=== PATIENT | female | born 2000 | race Caucasian/White ===

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

== ENCOUNTER 2020-04-30 12:35 | Emergency (ER) | payer MEDICAID ==
--- NOTE | 2020-04-30 12:58 | ER Document Report ---
ED Medical Screen (RME) - General Chief Complaint: Breathing Difficulty Stated Complaint: SHORTNESS OF BREATH/CHILLS/ Time Seen by Provider: 04/30/20 12:52 Mode of Arrival: Ambulatory Information source: Patient Notes: 19-year-old female presents to ED for chest pain shortness of breath. She does have a history of asthma anxiety depression and dislocated shoulder. She states she was supposed to go to work today where she was very short of breath and her mother's boyfriend called back and stated that he was positive for COVID. She states that she lives in the same house with her mother's boyfriend and that she has close contact and she does not smoke does not drink alcohol but does use marijuana. She is alert oriented respirations regular nonlabored at this time. She states she does have body aches all over but no fever. ' I have greeted and performed a rapid initial assessment of this patient. A comprehensive ED assessment and evaluation of the patient, analysis of test results and completion of medical decision making process will be conducted by an additional ED providers. - Related Data Allergies/Adverse Reactions: No Known Allergies Allergy (Verified 04/30/20 12:55) Past Medical History - Social History Frequency of alcohol use: None Drug Abuse: Marijuana Pulmonary Medical History: Reports: Hx Asthma Physical Exam - Vital signs Vitals: Temp Pulse Resp BP Pulse Ox 98.5 F 78 18 122/66 99 04/30/20 12:40 04/30/20 12:40 04/30/20 12:40 04/30/20 12:40 04/30/20 12:40 Course - Vital Signs Vital signs: Temp Pulse Resp BP Pulse Ox 98.5 F 78 18 122/66 99 04/30/20 12:40 04/30/20 12:40 04/30/20 12:40 04/30/20 12:40 04/30/20 12:40
[2020-04-30 14:13] LABS: A TYPE INFLUENZA AG NEGATIVE (NEGATIVE); B INFLUENZA AG NEGATIVE (NEGATIVE)
--- NOTE | 2020-04-30 14:40 | RADIOLOGY REPORT (SQ) ---
EXAM DESCRIPTION: CHEST SINGLE VIEW IMAGES COMPLETED DATE/TIME: 04/30/2020 2:13 pm REASON FOR STUDY: Chest pain covid exposure COMPARISON: None. EXAM PARAMETERS: NUMBER OF VIEWS: One view. TECHNIQUE: Single frontal radiographic view of the chest acquired. RADIATION DOSE: NA LIMITATIONS: None. FINDINGS: LUNGS AND PLEURA: No opacities, masses or pneumothorax. No pleural effusion. MEDIASTINUM AND HILAR STRUCTURES: No masses. Contour normal. HEART AND VASCULAR STRUCTURES: Heart normal in size. Normal vasculature. BONES: No acute findings. HARDWARE: None in the chest. OTHER: No other significant finding. IMPRESSION: NO ACUTE RADIOGRAPHIC FINDING IN THE CHEST. TECHNICAL DOCUMENTATION: JOB ID: [id number] 2010 [employer]- All Rights Reserved Reading location - IP/workstation name: [email or web address]
--- NOTE | 2020-04-30 16:05 | ER Document Report ---
ED General - General Chief Complaint: Breathing Difficulty Stated Complaint: SHORTNESS OF BREATH/CHILLS/ Time Seen by Provider: 04/30/20 12:52 Mode of Arrival: Ambulatory Notes: Patient is a 19-year-old white female with a history of asthma who presents the emergency department today with chief complaint of exposure to COVID-19. The patient reports that a close friend of hers and her in her cervical tested +2 days ago for COVID-19. She states her mother was around this person yesterday and she has been subsequently around her mother. She states yesterday she started noticing some difficulty breathing. She states this is hard to describe but is only able to reported as trouble breathing. She admits is associated with intermittent sharp anterior chest pains. She states she feels okay at this time but was concerned given the previous stated symptoms and her exposure to COVID-19 so she came for testing and evaluation. She denies any fevers, chills, night sweats, abdominal pain, vomiting diarrhea, nausea, rashes or recent travel. - Related Data Allergies/Adverse Reactions: No Known Allergies Allergy (Verified 04/30/20 12:55) Past Medical History - General Information source: Patient - Social History Smoking Status: Never Smoker Frequency of alcohol use: None Drug Abuse: Marijuana Family History: Reviewed & Not Pertinent Pulmonary Medical History: Reports: Hx Asthma Review of Systems - Review of Systems Constitutional: denies: Fever EENT: denies: Nose discharge Cardiovascular: Chest pain Respiratory: Short of breath Gastrointestinal: denies: Abdominal pain Genitourinary: denies: Hematuria Female Genitourinary: denies: Vaginal discharge Musculoskeletal: denies: Deformity Skin: denies: Lesions Hematologic/Lymphatic: denies: Blood clots Neurological/Psychological: denies: Headaches Physical Exam - Vital signs Vitals: Temp Pulse Resp BP Pulse Ox 98.5 F 78 18 122/66 99 04/30/20 12:40 04/30/20 12:40 04/30/20 12:40 04/30/20 12:40 04/30/20 12:40 - General General appearance: Appears well, Alert In distress: None - HEENT Head: Normocephalic, Atraumatic Eyes: Normal Conjunctiva: Normal Extraocular movements intact: Yes Pupils: PERRL Ears: Normal External canal: Normal Tympanic membrane: Normal Nasal: Normal Mouth/Lips: Normal Mucous membranes: Normal Pharynx: Normal Neck: Normal, Supple - Respiratory Respiratory status: No respiratory distress Chest status: Nontender Breath sounds: Normal Chest palpation: Normal - Cardiovascular Rhythm: Regular Heart sounds: Normal auscultation - Extremities General upper extremity: Normal inspection, Nontender, Normal color, Normal ROM, Normal temperature General lower extremity: Normal inspection, Nontender, Normal color, Normal ROM, Normal temperature, Normal weight bearing. No: Ferdinand's sign - Neurological Neuro grossly intact: Yes Cognition: Normal Orientation: AAOx4 - Psychological Associated symptoms: Normal affect, Normal mood - Skin Skin Temperature: Warm Skin Moisture: Dry Skin Color: Normal Course - Re-evaluation Re-evalutation: 04/30/20 17:18 EKG: Sinus rhythm at 72 bpm. Normal axis. Normal intervals. No STEMI. Interpreted by myself in conjunction with ED attending. 04/30/20 17:23 X-ray negative for any acute process per radiologist. Work-up largely unremarkable. Patient is pending her COVID-19 test. We discussed quarantine measures, isolation in her home until a negative result is phoned to her or at least 10 days and quarantine or until she is 24 hours symptom-free per CDC guidelines. Discussed with her the importance of outpatient follow-up. She requested a refill of her albuterol rescue inhaler. I advised that she return here or any ER immediately with any new, persistent or worsening symptoms. She verbalized understood and agreed. Patient is in no acute distress, stable and appropriate for discharge and outpatient follow-up. - Vital Signs Vital signs: Temp Pulse Resp BP Pulse Ox 98.9 F 82 16 140/70 H 96 04/30/20 16:15 04/30/20 16:15 04/30/20 16:15 04/30/20 16:15 04/30/20 16:15 - Laboratory Result Diagrams: 04/30/20 16:08 04/30/20 16:08 Laboratory results interpreted by me: 04/30/20 16:08 Sodium 136.8 L Discharge - Discharge Clinical Impression: Person under investigation for COVID-19 Condition: Stable Disposition: HOME, SELF-CARE Instructions: COVID-19 Guidance for Persons Under Investigation Additional Instructions: Follow-up with your regular doctor in 2 to 3 days for reevaluation. Return here or any ER immediately with any new, persistent or worsening symptoms. Prescriptions: Albuterol Sulfate [Proair Respiclick] 90 mcg IH Q4 PRN #1 [email or web address] PRN Reason: Referrals: [facility] [NO LOCAL MD] - Follow up as needed
[2020-04-30 16:24] LABS: ABSOLUTE EOSINOPHILS # (AUTO) 0.1 10^3/uL (0.0-0.6); ABSOLUTE LYMPHOCYTES (AUTO) 1.1 10^3/uL (0.5-4.7); ABSOLUTE MONOCYTES (AUTO) 0.6 10^3/uL (0.1-1.4); ABSOLUTE NEUT (AUTO) 6.2 10^3/uL (1.7-8.2); BASOPHILS % (AUTO) 0.3 % (0-2); EOSINOPHILS % (AUTO) 1.8 % (0-6); HEMATOCRIT 37.7 % (36.0-47.0); HEMOGLOBIN 12.9 g/dL (12.0-15.5); LYMPHOCYTES % (AUTO) 13.3 % (13-45); MEAN CORPUSCULAR HGB CONC 34.3 g/dL (32.0-36.0); MEAN CORPUSCULAR VOLUME 87 fl (80-97); MONOCYTES % (AUTO) 7.2 % (3-13); PLATELET COUNT 384 10^3/uL (150-450); RED BLOOD COUNT 4.32 10^6/uL (3.72-5.28); RED CELL DISTRIBUTION WIDTH 13.6 % (11.5-14.0); SEGMENTED NEUTROPHILS % (AUTO) 77.4 % (42-78); TOTAL CELLS COUNTED % (AUTO) 100 %
[2020-04-30 16:39] LABS: ALBUMIN 4.5 g/dL (3.7-5.6); ALKALINE PHOSPHATASE 96 U/L (50-135); ANION GAP 12 (5-19); ASPARTATE AMINO TRANSFERASE 27 U/L (5-30); BILIRUBIN,DIRECT 0.2 mg/dL (0.0-0.4); BILIRUBIN,TOTAL 0.5 mg/dL (0.2-1.3); BLOOD UREA NITROGEN 16 mg/dL (7-20); CALCIUM 9.4 mg/dL (8.4-10.2); CARBON DIOXIDE 22 mmol/L (22-30); CHLORIDE 103 mmol/L (98-107); GLUCOSE 94 mg/dL (75-110); POTASSIUM 4.3 mmol/L (3.6-5.0); TOTAL PROTEIN 7.2 g/dL (6.3-8.2)
[2020-04-30 17:49] VITALS: BP 138/58
--- NOTE | 2020-05-01 00:52 | EKG REPORT ---
SEVERITY:- NORMAL ECG - SINUS RHYTHM : Confirmed by: Carley Juarez MD 01-May-2020 00:52:06
== END 2020-04-30 17:49 | disposition home or self-care (01) ==
LOC: ER 12:35
DX: U07.1 COVID-19 (principal); R06.00 Dyspnea, unspecified; R07.9 Chest pain, unspecified
CPT/HCPCS: 93005; 99285; 36415; 85025; 87635; 80053; 84484; 87804; 71045; 93010; C9803

== ENCOUNTER 2020-07-04 19:35 | Emergency (ER) | payer MEDICAID ==
[2020-07-04 20:00] VITALS: BP 134/77
--- NOTE | 2020-07-04 22:30 | ER Document Report ---
ED Medical Screen (RME) - General Chief Complaint: Flank Pain Stated Complaint: SEVERE LOW BACK PAIN, DISCHARGE Time Seen by Provider: 07/04/20 22:12 - HPI Notes: Patient is a 19 y/o female who presents bilateral flank pain, left greater than right, that began today. Patient was seen at [facility] four days ago and was diagnosed with UTI and started on bactrim. She states her dysuria resolved but she continues to have urinary frequency. She reports yellow vaginal discharge but denies hematuria, fever, and vomiting. - Related Data Allergies/Adverse Reactions: No Known Allergies Allergy (Verified 04/30/20 12:55) Home Medications: vibryd, control Past Medical History - Social History Frequency of alcohol use: None Drug Abuse: None Pulmonary Medical History: Reports: Hx Asthma Physical Exam - Vital signs Vitals: Temp Pulse Resp BP Pulse Ox 98.1 F 72 20 134/77 H 100 07/04/20 19:56 07/04/20 19:56 07/04/20 19:56 07/04/20 19:56 07/04/20 19:56 - Abdominal Tenderness: Nontender - Back Back: No: CVA tenderness Course - Re-evaluation Re-evalutation: I have greeted and performed a rapid initial assessment of this patient. A comprehensive ED assessment and evaluation of the patient, analysis of test results and completion of medical decision making process will be conducted by an additional ED providers. - Vital Signs Vital signs: Temp Pulse Resp BP Pulse Ox 98.1 F 72 20 134/77 H 100 07/04/20 19:56 07/04/20 19:56 07/04/20 19:56 07/04/20 19:56 07/04/20 19:56
[2020-07-04 23:06] LABS: ABSOLUTE BASOPHILS # (AUTO) 0.1 10^3/uL (0.0-0.2); ABSOLUTE EOSINOPHILS # (AUTO) 0.2 10^3/uL (0.0-0.6); ABSOLUTE MONOCYTES (AUTO) 0.7 10^3/uL (0.1-1.4); ABSOLUTE NEUT (AUTO) 7.5 10^3/uL (1.7-8.2); BASOPHILS % (AUTO) 0.5 % (0-2); EOSINOPHILS % (AUTO) 1.7 % (0-6); HEMATOCRIT 35.3 % (36.0-47.0); HEMOGLOBIN 12.1 g/dL (12.0-15.5); LYMPHOCYTES % (AUTO) 26.3 % (13-45); MEAN CORPUSCULAR HEMOGLOBIN 29.5 pg (27.0-33.4); MEAN CORPUSCULAR HGB CONC 34.2 g/dL (32.0-36.0); MEAN CORPUSCULAR VOLUME 86 fl (80-97); MONOCYTES % (AUTO) 6.4 % (3-13); PLATELET COUNT 395 10^3/uL (150-450); RED BLOOD COUNT 4.09 10^6/uL (3.72-5.28); RED CELL DISTRIBUTION WIDTH 13.4 % (11.5-14.0); SEGMENTED NEUTROPHILS % (AUTO) 65.1 % (42-78); TOTAL CELLS COUNTED % (AUTO) 100 %; WHITE BLOOD COUNT 11.5 10^3/uL (4.0-10.5)
[2020-07-04 23:16] LABS: APPEARANCE,URINE SLIGHTLY-CLOUDY; BILIRUBIN,URINE NEGATIVE (NEGATIVE); COLOR,URINE YELLOW; GLUCOSE, URINE NEGATIVE (NEGATIVE); KETONES,URINE NEGATIVE (NEGATIVE); LEUKOCYTE ESTERASE,URINE MODERATE (NEGATIVE); NITRITE,URINE NEGATIVE (NEGATIVE); PROTEIN,URINE NEGATIVE (NEGATIVE); URINE SPECIFIC GRAVITY 1.032; UROBILINOGEN,URINE NEGATIVE mg/dL (<2.0)
[2020-07-04 23:24] LABS: ALBUMIN 4.5 g/dL (3.7-5.6); ALKALINE PHOSPHATASE 102 U/L (50-135); ANION GAP 10 (5-19); ASPARTATE AMINO TRANSFERASE 28 U/L (5-30); BILIRUBIN,DIRECT 0.1 mg/dL (0.0-0.4); BILIRUBIN,TOTAL 0.3 mg/dL (0.2-1.3); BLOOD UREA NITROGEN 19 mg/dL (7-20); CALCIUM 9.8 mg/dL (8.4-10.2); CARBON DIOXIDE 24 mmol/L (22-30); CHLORIDE 104 mmol/L (98-107); GLUCOSE 90 mg/dL (75-110); POTASSIUM 3.8 mmol/L (3.6-5.0); TOTAL PROTEIN 7.6 g/dL (6.3-8.2)
--- NOTE | 2020-07-04 23:37 | RADIOLOGY REPORT (SQ) ---
EXAM CLINICAL HISTORY: bilateral flank pain, r/o pyelonephritis COMPARISON: None. 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 Both kidneys are unremarkable with no hydronephrosis or nephrolithiasis. IMPRESSION: Unremarkable study.
[2020-07-04] MEDS ORDERED: IBUPROFEN 400 MG TABLET PO ONE (23:55)
--- NOTE | 2020-07-05 00:31 | ER Document Report ---
ED General - General Chief Complaint: Flank Pain Stated Complaint: SEVERE LOW BACK PAIN, DISCHARGE Time Seen by Provider: 07/04/20 22:12 - HPI Notes: Patient is a 19-year-old female who presents with low back pain. Patient states she has had some dysuria this week. She had a urinalysis done at [facility] and was placed on 3 days of Bactrim which she finished. Patient states that back pain started today at work it is in the middle of her back and radiates to both sides. Denies any fevers or chills. No nausea or vomiting. She states she has a slight white vaginal discharge. Back pain is worse with palpation. - Related Data Allergies/Adverse Reactions: No Known Allergies Allergy (Verified 04/30/20 12:55) Home Medications: vibryd, control Past Medical History - General Information source: Patient - Social History Smoking Status: Never Smoker Frequency of alcohol use: None Drug Abuse: None Family History: Reviewed & Not Pertinent Patient has homicidal ideation: No Pulmonary Medical History: Reports: Hx Asthma Review of Systems - Review of Systems Notes: CONSTITUTIONAL: No fever, fatigue or weight loss. SKIN: No rash. CARDIOVASCULAR: No chest pain or edema. RESPIRATORY: No cough, shortness of breath, congestion, or wheezing. GASTROINTESTINAL: No abdominal pain, nausea, vomiting, bloody stools or diarrhea. GENITOURINARY: Positive for dysuria and discharge. Positive for low back pain. MUSCULOSKELETAL: No joint pain or swelling. LYMPHATIC: No swollen glands. NEUROLOGIC: No seizures. No headache, focal weakness or sensory changes. HEMATOLOGIC: No unusual bruising or bleeding. PSYCHIATRIC: No depression or anxiety. Physical Exam - Vital signs Vitals: Temp Pulse Resp BP Pulse Ox 98.1 F 72 20 134/77 H 100 07/04/20 19:56 07/04/20 19:56 07/04/20 19:56 07/04/20 19:56 07/04/20 19:56 - General General appearance: Appears well Notes: VITAL SIGNS: Within normal limits. GENERAL: No acute distress, non-toxic appearance. HEAD: Normal with no signs of head trauma. EYES: Conjunctiva normal, no discharge. NECK: Normal range of motion, no tenderness, supple, no lymphadenopathy, No adenopathy, no JVD. CHEST: Clear breath sounds bilaterally. No wheezes, rales, or rhonchi. CARDIAC: Regular rate and rhythm. S1 and S2, without murmurs, gallops, or rubs. VASCULAR: No Edema. ABDOMEN: Normal and soft with no tenderness, no masses or pulsatile masses. GENITOURINARY: Normal, No tenderness LYMPATHTIC: No lymphadenopathy noted. MUSCULOSKELETAL: Good range of motion of all major joints. Extremities without clubbing, cyanosis or edema. Discomfort to palpation of midline lumbar spine. NEUROLOGICAL: Alert and oriented x 3. No focal sensory or strength deficits. Speech normal. Follows commands appropriately. PSYCHIATRIC: Normal Affect, judgement and mood. SKIN: Normal appearance with no rashes or lesions. Course - Re-evaluation Re-evalutation: 07/05/20 02:38 Patient has evidence of a UTI on her urinalysis. I did offer to do a pelvic exam and swabs because she has discharge. Patient did not want the pelvic exam but agreed to swabs initially. I was then told by nursing staff that patient does not want to wait for swabs and wants to go to her PCP tomorrow and get it done. I believe this is reasonable. Possible cause of her back pain could be muscular. She denies any trauma but she has reproducible discomfort to midline lumbar spine palpation. She has no CVA tenderness. Her ultrasound was negative. Patient is afebrile. I will place her on Keflex and will await a urine culture. Patient was given strict return precautions. - Vital Signs Vital signs: Temp Pulse Resp BP Pulse Ox 98.1 F 72 20 134/77 H 100 07/04/20 19:56 07/04/20 19:56 07/04/20 19:56 07/04/20 19:56 07/04/20 19:56 - Laboratory Results Result Diagrams: 07/04/20 22:41 07/04/20 22:41 Laboratory Results Interpreted: 07/04/20 07/04/20 22:27 22:41 WBC 11.5 H Hct 35.3 L Ur Leukocyte Esterase MODERATE H Critical Laboratory Results Reviewed: No Critical Results - Radiology Results Critical Radiology Results Reviewed: No Critical Results Discharge - Discharge Clinical Impression: Dysuria UTI (urinary tract infection) Qualifiers: Urinary tract infection type: site unspecified Hematuria presence: without he maturia Qualified Code(s): N39.0 - Urinary tract infection, site not specified Condition: Stable Disposition: HOME, SELF-CARE Instructions: Low Back Pain ([facility]) Prescriptions: Cephalexin Monohydrate [Keflex 500 mg Capsule] 500 mg PO BID 7 Days #14 capsule
== END 2020-07-05 00:40 | disposition home or self-care (01) ==
LOC: ER 19:35
DX: N39.0 Urinary tract infection, site not specified (principal); M54.5 Low back pain; R30.0 Dysuria; N89.8 Other specified noninflammatory disorders of vagina; J45.909 Unspecified asthma, uncomplicated; Z79.3 Long term (current) use of hormonal contraceptives; Z79.899 Other long term (current) drug therapy
CPT/HCPCS: 99284; 36415; 87086; 84703; 85025; 87088; 80053; 81001; 76775; J3490